=== PATIENT | male | born 1990 | race Caucasian/White ===

== ENCOUNTER 2019-03-15 22:39 | Emergency (ER) | payer SELFPAY ==
--- NOTE | 2019-03-15 23:22 | RAD ---
Exam: Right ankle 3 views: HISTORY: Pain Very marked lateral and anterior soft tissue swelling. Evidence for distended ankle joint and associa daylin effusion. No acute fracture or dislocation. IMPRESSION: Marked soft tissue swelling. Evidence for ankle joint effusion concerning for the possibility of nono sseous injury. No evidence for acute fracture or dislocation.
[2019-03-15] MEDS ORDERED: HYDROcodone/Acetaminophen 5/325 mg Tablet ONE (23:45)
== END 2019-03-15 23:50 | disposition home or self-care (01) ==
LOC: MADERS 22:39
DX: S93.401A Sprain of unspecified ligament of right ankle, initial encounter (principal); F41.9 Anxiety disorder, unspecified; F43.10 Post-traumatic stress disorder, unspecified; F17.220 Nicotine dependence, chewing tobacco, uncomplicated; X50.1XXA Overexertion from prolonged static or awkward postures, initial encounter